=== PATIENT | male | born 1970 | race Caucasian/White ===

== ENCOUNTER 2020-08-18 06:45 | Emergency (ER) | payer MEDICARE, SELFPAY ==
[2020-08-18 06:50] VITALS: BP 195/105; PULSE 104; RESP 24; TEMP 37; O2SAT 96; BMI 25.1
--- NOTE | 2020-08-18 06:56 | ED_ITS ---
HPI - General Adult General: Chief complaint: General Medical Stated complaint: wiggling Time Seen by Provider: 08/18/20 06:51 History of Present Illness: HPI narrative: 49-year-old male presents emergency room with acute neurosis induced by methamphetamine and marijuana use. Patient told EMS that he got a hold of some bad drugs. Patient admits heused IV methamphetamine this morning. He is under the influence of methamphetamine in the emergency room. He refuses any lab work even refuses any medications. States he does not want to . Was able with some coercion to get him to allow me to examine him. Patient denies any suicidal or homicidal ideation. Patient is extremely anxious and scared that because he took the drugs they may kill him. He does not wish to . He repeats over and over he wants to live. Onset (ago): minute(s) Associated symptoms: Reports confusion; Deny chest pain, cough, diaphoresis, decreased appetite, dyspnea, fevers/chills, headache(s), malaise, nausea, rash, palpitations, seizures, short of breath, syncope, vomiting or weakness Treatments prior to arrival: none Review of Systems Const: Denies: malaise or diaphoresis ENMT: Denies: throat pain, ear or mastoid pain, nasal discharge or nasal congestion Card: Denies: chest pain, palpitations or syncope Resp: Denies: dyspnea GI: Denies: nausea or vomiting : Denies: flank pain, dysuria, urinary frequency or urinary urgency Skin/Breast: Denies: rash Neuro: Reports: confusion; Denies: headache(s) Physical Exam HENMT: COMMON NORMALS: normocephalic and atraumatic HEAD & SCALP: normocephalic and atraumatic Eye: OTHER: Pupils constricted react sluggishly. Attempted to test for nystagmus but was difficult to get him to hold lateral gaze or inferior superior gaze could not check well for it. Neck/C-Spine: COMMON NORMALS: full ROM, no lymphadenopathy, supple and no JVD Resp: COMMON NORMALS: normal respiratory effort, No retractions, No use of accessory muscles and clear to auscultation bilaterally AUSCULTATION: clear to auscultation bilaterally Cardio: COMMON NORMALS: no JVD, regular rhythm and No murmurs present (Cardio) RATE: tachycardic RHYTHM: regular rhythm GI: COMMON NORMALS: Soft to palpation and No hepatosplenomegaly present AUSCULTATION: Yes normoactive bowel sounds PALPATION: Yes Soft to palpation, No Tenderness to palpation present (GI), No Guarding due to palpation present (GI) and Yes No hepatosplenomegaly present Extremity: COMMON NORMALS: normal to inspection, capillary refill normal, no clubbing, cyanosis or edema, no calf tenderness and no pedal edema Psych: MOOD & AFFECT: Yes anxious Skin: COMMON NORMALS: no rashes or lesions noted GENERAL SKIN EXAM: no rashes or lesions noted Course Vital Signs: Vital signs: Vital Signs Temperature 98.6 F 08/18/20 06:50 Pulse Rate 112 H 08/18/20 08:19 Respiratory Rate 22 H 08/18/20 08:19 Blood Pressure 182/96 08/18/20 07:36 Pulse Oximetry 98 08/18/20 08:19 MDM - General Adult MDM Narrative: Medical decision making narrative: Several attempts over time were made to get the patient to allow us to do lab work. He continues to refuse. He was observed for a period of time and began to improve. He is aware of time place and person he admits to doing methamphetamines. He knows where hi s vehicle is and wishes to go. He is still under the influence however there is no grounds to place him on a 96-hour hold at this time. He continues to deny any suicidal or homicidal ideation. Patient verbalizes his understanding of the drug use tied to the feelings of anxiety that he had when he arrived. The majority of this has resolved. Discharge Plan Discharge Patient Disposition: Home Clinical Impression: Drug-induced psychotic disorder, Methamphetamine abuse Condition: Stable Prescriptions: No Action citalopram 40 mg Tablet 40 mg PO DAILY RF: 0 atorvastatin 20 mg Tablet 20 mg PO DAILY RF: 0 metformin 500 mg Tablet 500 mg PO BID RF: 0 testosterone cypionate 200 mg/mL Kit 200 mg IM Q30D RF: 0 Discharge Orders: Discharge ED (Routine); Ordered 08/18/20 Ordered By: Jean Pierre Rose Referrals: Srinath White MD [Primary Care Provider] - Patient Instructions: Opioid Safety Activity Restrictions/Additional Instructions: Stop using methamphetamines. Coding Level of Care Code ED Heavy Equipment Supervisor for Noah Fwd Exam Comprehensive
--- NOTE | 2020-08-18 07:05 | ECG_ITS ---
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1970 Requested By: Jean Pierre Mar Order Number: [id number] Reading MD: HERMINIA RESENDEZ Measurements Intervals Brady Rate: 112 P: 77 [place]: 175 QRS: 58 QRSD: 96 T: 57 QT: 327 QTc: 448 Interpretive Statements SINUS TACHYCARDIA POSSIBLE LEFT ATRIAL ENLARGEMENT [-0.1mV P WAVE IN V1/V2] MODERATE ST DEPRESSION [0.05+ mV ST DEPRESSION] INTERPRETATION BASED ON A DEFAULT AGE OF 40 YEARS No previous ECG available for comparison Electronically Signed On 08-18-2020 20:17:16 CDT by HERMINIA RESENDEZ [id number]
--- NOTE | 2020-08-18 07:30 | PC.NURSE ---
RN went into patients room to start an IV with blood draw. Patient immediately became frantic, moving away from nurse. RN explained what blood was for and patient refused multiple times. Provider notified.
[2020-08-18 07:36] VITALS: BP 182/96; PULSE 118; RESP 18; O2SAT 97
--- NOTE | 2020-08-18 07:38 | PC.NURSE ---
Patient sitting on the end of the bed, yelling for help because the monitor says he and has straight lines on it . RN reapplied pulse ox. Patient continues to look around room at different things.
[2020-08-18 08:19] VITALS: PULSE 112; RESP 22; O2SAT 98
== END 2020-08-18 09:41 | disposition home or self-care (01) ==
PROVIDERS: Emergency Provider Family Medicine; PCP Internal Medicine
DX: F15.159 Other stimulant abuse with stimulant-induced psychotic disorder, unspecified (principal)
CPT/HCPCS: 93005; 99282

== ENCOUNTER 2020-08-18 22:21 | Inpatient (IN) | payer MEDICARE, SELFPAY ==
[2020-08-18 22:28] VITALS: BP 158/89; PULSE 99; RESP 18; TEMP 36.6; O2SAT 98; BMI 25.1
--- NOTE | 2020-08-18 22:48 | ED_ITS ---
HPI - Psych General: Chief Complaint: Psychiatric Symptoms Stated Complaint: SAID NEEDS HELP OR HE'S GONNA KILL HIMSELF Time Seen by Provider: 08/18/20 22:45 Source: patient Mode of arrival: ambulatory Limitations: no limitations History of Present Illness: HPI Narrative: 49-year-old male who was seen here earlier this morning for methamphetamine abuse. Patient states that he has had increasing depression especially throughout the day with his drug abuse. He states he has been feeling hopeless and started having suicidal thoughts this evening. 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 Patient voluntarily wanting to be admitted to the [facility] this evening. He denies any attempts recently. He has been admitted to the psych facility years ago. He denies any worsening improving factors. Associated symptoms: Reports depression and suicidal ideation Review of Systems Const: Denies: fever(s), chills, body aches or change in appetite Eyes: Denies: blurry vision or eye discomfort ENMT: Denies: throat pain or dental pain Card: Denies: chest pain Resp: Denies: dyspnea GI: Denies: abdominal pain, nausea, vomiting or diarrhea : Denies: dysuria Musc: Denies: neck pain or back pain Skin/Breast: Denies: rash Neuro: Denies: headache(s) Psych: Reports: depression and suicidal ideation Joe/Lymph: Denies: easy bruising All/Imm: Denies: urticaria Physical Exam Const: COMMON NORMALS: no acute distress, patient oriented x3 and healthy appearing HENMT: COMMON NORMALS: normocephalic and atraumatic HEAD & SCALP: normocephalic and atraumatic Eye: COMMON NORMALS: Equal, round and reactive pupils present and EOMs intact bilaterally PUPIL: Yes Equal, round and reactive pupils present Neck/C-Spine: COMMON NORMALS: full ROM and supple Chest: COMMONS NORMALS: normal inspection of the chest and normal palpation of entire chest wall Resp: COMMON NORMALS: normal respiratory effort, No retractions, No use of accessory muscles and clear to auscultation bilaterally AUSCULTATION: clear to auscultation bilaterally Cardio: COMMON NORMALS: regular rate, regular rhythm and No murmurs present (Cardio) RATE: regular rate RHYTHM: regular rhythm GI: COMMON NORMALS: Normal to inspection, nondistended, normoactive bowel sounds present, Soft to palpation, non-tender and no masses PALPATION: Yes Soft to palpation Extremity: COMMON NORMALS: normal to inspection and full ROM Neuro: COMMON NORMALS: patient oriented x3, moves all extremities and no focal motor deficits Psych: COMMON NORMALS: mental status grossly normal, Normal thought process present and cooperative THOUGHT PROCESS: Normal thought process present THOUGHT CONTENT: Yes Suicidality present Skin: COMMON NORMALS: no rashes or lesions noted and no wounds GENERAL SKIN EXAM: no rashes or lesions noted MDM - Psych MDM Narrative: Medical decision making narrative: Patient presents here with suicidal ideation is voluntarily want to be admitted. Patient blood work here is normal and he is medically cleared. He has been using methamphetamine as well. I spoke to the psychiatrist and will admit at this time. Lab Data: Labs: Lab Results 08/18/20 08/18/20 08/18/20 Range/Units 22:56 22:56 22:59 WBC 8.2 (4.0-10.0) 10^3/ uL RBC 5.17 (4.1-5.3) 10^6/u L Hgb 15.4 (11.7-16.6) g/dL Hct 44.4 (42.0-52.0) % MCV 85.9 (80-94) fL MCH 29.8 (28.0-34.0) pg MCHC 34.7 (30.0-36.0) g/dL RDW 12.4 (12.1-15.1) % Plt Count 246 (130-400) 10^3/c mm MPV 9.8 (7.4-10.4) fL Neut % (Auto) 65.1 % Lymph % (Auto) 22.3 % [place] % (Auto) 11.1 % Eos % (Auto) 1.2 % Baso % (Auto) 0.2 % Neut # (Auto) 5.33 (1.8-7.7) 10^3/u L Lymph # (Auto) 1.8 (0.8-4.8) 10^3/u L [place] # (Auto) 0.9 (0.2-0.9) 10^3/u L Eos # (Auto) 0.1 (0.0-0.8) 10^3/u L Baso # (Auto) 0.0 (0.0-0.1) 10^3/u L Nucleated RBC % (a uto) 0 % Nucleated RBCs # 0.0 /100WBC Sodium 137 (136-145) mmol/L Potassium 3.2 L (3.5-5.1) mmol/L Chloride 100 (98-107) mmol/L Carbon Dioxide 25 (22-29) mmol/L Anion Gap 15.2 (5-19) BUN 11 (6-20) mg/dL Creatinine 0.8 (0.7-1.2) mg/dL GFR Calculation 102.3 (90-130) mL/min Glucose 214 H (65-115) mg/dL Calculated Osmolal ity 290 (285-295) mOsm/k g Calcium 9.3 (8.5-10.5) mg/dL Total Bilirubin 0.9 (0.15-1.2) mg/dL AST 16 (0-40) U/L ALT 18 (0-41) U/L Alkaline Phosphata se 85 (40-130) IU/L Total Protein 7.3 (6.6-8.7) g/dL Albumin 4.5 (3.5-5.2) g/dL Globulin 2.8 (1.3-4.6) g/dL Salicylates < 0.3 L (3-10) mg/dL Urine Opiates Scre en Negative (Negative) ng/mL Acetaminophen < 5.0 L (10-30) ug/mL Ur Barbiturates Sc reen Negative (Negative) ng/mL Ur Phencyclidine S crn Negative (Negative) ng/mL Ur Amphetamines Sc reen Positive H (Negative) ng/mL U Benzodiazepines Scrn Negative (Negative) ng/mL Urine Cocaine Scre en Negative (Negative) ng/mL U Marijuana (THC) Screen Positive H (Negative) ng/mL Ethyl Alcohol < 10 (0-10) mg/dL Discharge Plan Discharge Patient Disposition: Admitted As Inpatient Clinical Impression: Methamphetamine abuse, Suicidal ideation Condition: Stable Coding Level of Care Code ED Tool Storage Attendant for Noah Fwbrittany Exam Comprehensive
[2020-08-18 23:03] LABS: Basophils % 0.2 %; Eosinophils # 0.1 10^3/uL (0.0-0.8); Eosinophils % 1.2 %; Hematocrit 44.4 % (42.0-52.0); Hemoglobin 15.4 g/dL (11.7-16.6); Lymphocytes # 1.8 10^3/uL (0.8-4.8); Lymphocytes % 22.3 %; Mean Corpuscular HGB Conc 34.7 g/dL (30.0-36.0); Mean Corpuscular Hemoglobin 29.8 pg (28.0-34.0); Mean Corpuscular Volume 85.9 fL (80-94); Mean Platelet Volume 9.8 fL (7.4-10.4); Monocytes # 0.9 10^3/uL (0.2-0.9); Monocytes % 11.1 %; Neutrophils # 5.33 10^3/uL (1.8-7.7); Neutrophils % 65.1 %; Nucleated Red Blood Cells % 0 %; Platelet Count 246 10^3/cmm (130-400); Red Blood Count 5.17 10^6/uL (4.1-5.3); Red Cell Distribution Width 12.4 % (12.1-15.1); White Blood Count 8.2 10^3/uL (4.0-10.0)
[2020-08-18 23:15] LABS: Amphetamines Screen Urine Positive (Negative); Barbiturates Screen Urine Negative (Negative); Benzodiazepines Screen Urine Negative (Negative); Cocaine Screen Urine Negative (Negative); Opiate Screen Urine Negative (Negative); PCP Screen Urine Negative (Negative); THC Screen Urine Positive (Negative)
[2020-08-18 23:18] LABS: Alanine Aminotransferase 18 U/L (0-41); Albumin Level 4.5 g/dL (3.5-5.2); Alkaline Phosphatase 85 IU/L (40-130); Anion Gap 15.2 (5-19); Aspartate Amino Transferase 16 U/L (0-40); Blood Urea Nitrogen 11 mg/dL (6-20); Calcium 9.3 mg/dL (8.5-10.5); Carbon Dioxide 25 mmol/L (22-29); Chloride 100 mmol/L (98-107); Globulin 2.8 g/dL (1.3-4.6); Glomerular Filtration Rate 102.3 mL/min (90-130); Glucose 214 mg/dL (65-115); Osmolality Calculated 290 mOsm/kg (285-295); Potassium 3.2 mmol/L (3.5-5.1); Sodium 137 mmol/L (136-145); Total Bilirubin 0.9 mg/dL (0.15-1.2); Total Protein 7.3 g/dL (6.6-8.7)
[2020-08-18 23:19] LABS: Acetaminophen < 5.0 ug/mL (10-30); Alcohol Level < 10 mg/dL (0-10); Salicylate < 0.3 mg/dL (3-10)
[2020-08-18 23:20] VITALS: BP 156/87; PULSE 78; RESP 16; O2SAT 100
[2020-08-19 00:05] VITALS: BP 154/78; PULSE 78; RESP 16; O2SAT 100
[2020-08-19 00:47] VITALS: BP 180/139; PULSE 105; RESP 20; TEMP 36.9; O2SAT 92
[2020-08-19] MEDS: trazodone 50 mg Tablet PO ×2 (00:56→20:59)
[2020-08-19] MEDS: acetaminophen 325 mg Tablet 650 MG PO ×2 (00:56→22:36)
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
[2020-08-19 06:00] VITALS: BP 115/69; PULSE 90; RESP 14; TEMP 37; O2SAT 100
[2020-08-19 06:42] LABS: Glucose Point of Care 150 mg/dL (70-110)
[2020-08-19] MEDS: citalopram 20 mg Tablet 40 MG PO (09:05)
[2020-08-19] MEDS: atorvastatin 40 mg Tablet 20 MG PO (09:05)
[2020-08-19] MEDS: metformin 500 mg Tablet PO ×2 (09:05→17:57)
[2020-08-19] MEDS: OLANZapine 5 mg ODT PO (11:08)
--- NOTE | 2020-08-19 11:09 | PC.NURSE ---
PRN ZYPREXA ZYDIS 5 MG GIVEN PO PER PT C/O PARANOIA/ANXIETY. PT PACING UNIT, HAS BOTH HANDS ON HIS HEAD, RAPID PRESSURED SPEECH NOTED. STAFF ASKED PT IF HE WAS FEELING ANXIOUS, PT LAUGHED AND SAID WHY YES! PT ASKED IF HE KNEW THAT HE WAS AT THE HOSPITAL IN [place], PT REPLIED YES PT TOOK MED WITH MUCH STAFF ENCOURAGEMENT. WILL CONT TO MONITOR FOR DESIRED MED EFFECTIVENESS.
[2020-08-19 11:47] LABS: Glucose Point of Care 211 mg/dL (70-110)
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
[2020-08-19 14:00] VITALS: BP 162/84; PULSE 94; RESP 20; TEMP 36.8; O2SAT 98
[2020-08-19 17:53] LABS: Glucose Point of Care 170 mg/dL (70-110)
[2020-08-19 21:17] LABS: Glucose Point of Care 139 mg/dL (70-110)
[2020-08-19 22:00] VITALS: BP 99/65; PULSE 82; TEMP 36.6; O2SAT 98
--- NOTE | 2020-08-20 03:31 | PC.NURSE ---
pm assessment pt is less paranoid this evening, he reports AH-voices, denies SI/HI, DENIES VH, V/S ARE WNL, HEART AND LUNGS ARE WNL, PT IS CALM IN THE DAY ROOM WATCHING TELEVISION,
[2020-08-20 05:29] VITALS: BP 113/78; PULSE 85; TEMP 36.2; O2SAT 97
[2020-08-20 06:54] LABS: Glucose Point of Care 144 mg/dL (70-110)
[2020-08-20] MEDS: citalopram 20 mg Tablet 40 MG PO (09:24)
[2020-08-20] MEDS: metformin 500 mg Tablet PO ×2 (09:24→18:11)
[2020-08-20] MEDS: atorvastatin 40 mg Tablet 20 MG PO (09:24)
[2020-08-20 11:29] LABS: Glucose Point of Care 143 mg/dL (70-110)
[2020-08-20 13:05] VITALS: BP 144/85; PULSE 76; RESP 18; TEMP 36.5; O2SAT 99
[2020-08-20 16:44] LABS: Glucose Point of Care 107 mg/dL (70-110)
--- NOTE | 2020-08-20 17:40 | P.PN_ITS ---
Subjective NPU Subjective: Interval history: Sb presents today with limited engagement as he had during the day. We agreed that is likely represented withdrawal phenomena and that we would continue to work with him on plans for sober living treatment. We continue to discuss the possibility of introducing an antipsychotic which he was fairly ambivalent and not really engaged in the conversation about the issue. He is eating okay and sleeping a lot. Mental Status Exam MSE Comments: This is a well-nourished, well-developed white male with tattoos all over his exposed skin with adequate grooming and limited eye contact. No abnormal movements except for psychomotor retardation. Semicooperative with exam and mild distress. Speech was normal rate and volume. Mood described as tired, affect congruent. Thought process mostly organized, thought content: Denied suicidal or homicidal ideation, he endorsed paranoia and delusional thinking was noted, he endorses auditory and visual hallucinations. Attention and concentration were impaired and memory was impaired but none were formally tested. He is alert and oriented x3. Insight and judgment are impaired and impulse control is limited. Vitals/I&O/Wt Last Vital Signs Temp 99.0 F 08/20/20 21:26 Pulse 77 08/20/20 21:26 Resp 16 08/20/20 21:26 BP 161/71 08/20/20 21:26 Pulse Ox 95 08/20/20 21:26 Data NPU : 08/18/20 22:56 08/18/20 22:56 A&P Additional A&P Information (1) Drug-induced psychotic disorder: (2) Methamphetamine abuse: (3) Suicidal ideation: (4) Depression: Additional A&P Information This is a 49-year-old white male with a long history of addiction depression and past history of drug-induced psychosis who presents with active addiction and thought disorder but unsure about taking medication at this time. 1. Continue current medication. We will attempt to get him to start Abilify 10 mg p.o. every morning to assist with the thought disorder. 2. Continue every 15 minute checks for safety. 3. Encourage individual, group and milieu therapies. 4. Encourage sober living treatment after discharge at the highest level of care to which he is willing to commit. Involuntary Hold Information 96 Hour Hold: 96 Hour Involuntary Admission: No Attestations NPU Medical Necessity Statement*: Inpatient hospitalization is medically necessary and the clinically appropriate intervention at this time. We will monitor medications and make changes as indicated. Likely length of stay 2-4 days. Coding Level of Care Code Acute Network Operations Center Engineer for Noah Douglas
[2020-08-20 20:37] LABS: Glucose Point of Care 127 mg/dL (70-110)
[2020-08-20 21:26] VITALS: BP 161/71; PULSE 77; RESP 16; TEMP 37.2; O2SAT 95
[2020-08-21 06:00] VITALS: BP 139/70; PULSE 80; RESP 16; TEMP 36.6; O2SAT 97
[2020-08-21 06:38] LABS: Glucose Point of Care 103 mg/dL (70-110)
[2020-08-21] MEDS: atorvastatin 40 mg Tablet 20 MG PO (08:14)
[2020-08-21] MEDS: citalopram 20 mg Tablet 40 MG PO (08:15)
[2020-08-21] MEDS: metformin 500 mg Tablet PO ×2 (08:16→17:17)
--- NOTE | 2020-08-21 09:47 | PC.SOCIAL ---
IMM not completed due to pt not discharging within next few days.
[2020-08-21 11:05] LABS: Glucose Point of Care 128 mg/dL (70-110)
[2020-08-21] MEDS: ARIPiprazole 10 mg Tablet PO (13:56)
[2020-08-21 14:00] VITALS: BP 132/76; PULSE 75; RESP 16; TEMP 37.7; O2SAT 95
--- NOTE | 2020-08-21 16:02 | PM.NPN ---
Subjective NPU Subjective: Interval history: Montez presents today seemingly continuing to have confusion and inability to make decisions. He continues to be overwhelmed with the simplest questions. Once again we asked if he would be open to a trial of an antipsychotic to maybe help with his thought disorder discussing the risks, benefits and alternatives and he understood agreed he has done his own. We discussed the fact that we are hopeful that with this is thinking would clear more quickly. Mental Status Exam MSE Comments: This is a well-nourished, well-developed white male with tattoos all over his exposed skin with adequate grooming and limited eye contact. No abnormal movements except for psychomotor retardation. Semicooperative with exam in mild to moderate distress. Speech was normal rate and volume. Mood described as I do not know, affect irritable and confused. Thought process mostly disorganized, thought content: Denied suicidal or homicidal ideation, he endorsed paranoia and paranoid/delusional thinking was noted, he endorses auditory and visual hallucinations. Attention and concentration were impaired and memory was impaired but none were formally tested. He is alert and oriented x3. Insight and judgment are impaired and impulse control is limited. Vitals/I&O/Wt Last Vital Signs Temp 99.9 F H 08/21/20 14:00 Pulse 75 08/21/20 14:00 Resp 16 08/21/20 14:00 BP 132/76 08/21/20 14:00 Pulse Ox 95 08/21/20 14:00 Data NPU : 08/18/20 22:56 08/18/20 22:56 A&P Additional A&P Information (1) Drug-induced psychotic disorder: (2) Methamphetamine abuse: (3) Suicidal ideation: (4) Depression: Additional A&P Information This is a 49-year-old white male with a long history of addiction depression and past history of drug-induced psychosis who presents with active addiction and thought disorder but unsure about taking medication at this time. 1. Continue current medication. Start Abilify 10 mg p.o. every morning and monitor for improvement. 2. Continue every 15 minute checks for safety. 3. Encourage individual, group and milieu therapies. 4. Encourage sober living treatment after discharge at the highest level of care to which he is willing to commit. Involuntary Hold Information 96 Hour Hold: 96 Hour Involuntary Admission: No Attestations NPU Medical Necessity Statement*: Inpatient hospitalization is medically necessary and the clinically appropriate intervention at this time. We will monitor medications and make changes as indicated. Likely length of stay 2-4 days. Coding Level of Care Code Acute Lapel Baster for Noah Douglas
[2020-08-21 16:33] LABS: Glucose Point of Care 108 mg/dL (70-110)
[2020-08-21 19:27] LABS: Glucose Point of Care 143 mg/dL (70-110)
[2020-08-21 22:00] VITALS: BP 131/71; PULSE 76; RESP 17; TEMP 37.4; O2SAT 93
[2020-08-22 06:00] VITALS: BP 166/81; PULSE 88; RESP 15; TEMP 37.1; O2SAT 96
--- NOTE | 2020-08-22 07:09 | PM.NPN ---
Subjective NPU Subjective: Interval history: Montez presents today reporting that he is feeling not much better. He seemed less on edge but otherwise was still isolative and staying in bed. He is showering and taking care of his ADLs and eating fine. He is getting significant sleep but still reporting significant confusion and inability to make decisions. He has expressed no clear interest and specific treatment modality after discharge. Mental Status Exam MSE Comments: This is a well-nourished, well-developed white male with tattoos all over his exposed skin with adequate grooming and limited eye contact. No abnormal movements except for psychomotor retardation. Semicooperative with exam in mild to moderate distress. Speech was normal rate and volume. Mood described as tired, affect irritable and confused. Thought process still disorganized, thought content: Denied suicidal or homicidal ideation, he endorsed paranoia and paranoid/delusional thinking was noted, he endorses auditory and visual hallucinations. Attention and concentration were impaired and memory was impaired but none were formally tested. He is alert and oriented x3. Insight and judgment are impaired and impulse control is limited. Vitals/I&O/Wt Last Vital Signs Temp 98.7 F 08/22/20 06:00 Pulse 88 08/22/20 06:00 Resp 15 08/22/20 06:00 BP 166/81 08/22/20 06:00 Pulse Ox 96 08/22/20 06:00 Data NPU : 08/18/20 22:56 08/18/20 22:56 A&P Additional A&P Information (1) Drug-induced psychotic disorder: (2) Methamphetamine abuse: (3) Suicidal ideation: (4) Depression: Additional A&P Information This is a 49-year-old white male with a long history of addiction depression and past history of drug-induced psychosis who presents with active addiction and thought disorder but unsure about taking medication at this time. 1. Continue current medication. 2. Continue every 15 minute checks for safety. 3. Encourage individual, group and milieu therapies. 4. Encourage sober living treatment after discharge at the highest level of care to which he is willing to commit. Involuntary Hold Information 96 Hour Hold: 96 Hour Involuntary Admission: No Attestations NPU Medical Necessity Statement*: Inpatient hospitalization is medically necessary and the clinically appropriate intervention at this time. We will monitor medications and make changes as indicated. Likely length of stay 2-4 days. Coding Level of Care Code Acute Drive Shaft And Steering Post Repairer for Rojeliog Misael
[2020-08-22 07:20] LABS: Glucose Point of Care 130 mg/dL (70-110)
[2020-08-22] MEDS: citalopram 20 mg Tablet 40 MG PO (08:05)
[2020-08-22] MEDS: metformin 500 mg Tablet PO ×2 (08:05→16:38)
[2020-08-22] MEDS: ARIPiprazole 10 mg Tablet PO (08:05)
[2020-08-22] MEDS: atorvastatin 40 mg Tablet 20 MG PO (08:05)
[2020-08-22 10:53] LABS: Glucose Point of Care 103 mg/dL (70-110)
[2020-08-22 13:20] VITALS: BP 148/81; PULSE 88; RESP 17; TEMP 37.1
[2020-08-22 16:47] LABS: Glucose Point of Care 106 mg/dL (70-110)
[2020-08-22 19:41] LABS: Glucose Point of Care 127 mg/dL (70-110)
[2020-08-22 22:00] VITALS: BP 156/85; PULSE 87; RESP 16; TEMP 36.9; O2SAT 94
[2020-08-22 22:41] VITALS: BP 156/85; PULSE 87; RESP 16; TEMP 36.9; O2SAT 94
--- NOTE | 2020-08-22 22:47 | PC.NURSE ---
pm assessment pt is sleeping, Denies pain, denies SI/HI, Denies AH/VH, v/s are normal with the exception of B/P of 156/85 at rest, and glucose is 127. Will continue to observe
[2020-08-23 06:00] VITALS: BP 159/83; PULSE 86; RESP 16; TEMP 37.3; O2SAT 96; BMI 25.1
[2020-08-23 06:35] LABS: Glucose Point of Care 116 mg/dL (70-110)
[2020-08-23] MEDS: atorvastatin 40 mg Tablet 20 MG PO (08:19)
[2020-08-23] MEDS: ARIPiprazole 10 mg Tablet PO (08:19)
[2020-08-23] MEDS: citalopram 20 mg Tablet 40 MG PO (08:19)
[2020-08-23] MEDS: metformin 500 mg Tablet PO ×2 (08:22→17:39)
[2020-08-23 11:40] LABS: Glucose Point of Care 93 mg/dL (70-110)
[2020-08-23 14:00] VITALS: BP 145/83; PULSE 82; RESP 18; TEMP 36.7; O2SAT 96
--- NOTE | 2020-08-23 15:12 | PM.NPN ---
Subjective NPU Subjective: Interval history: Montez presents today still being isolative and sleeping a lot likely reflecting withdrawal. But today is one of the first signs that his thought disorder is resolving. We had a first conversation wherein I essentially ask questions that he gave answers that approximated the subject and the essence of the question without needing me to repeat the question. He reports that he is eating fine and sleeping well, getting caught up on his sleep and starting to feel better. He finally feeling the medication is being helpful and that his thoughts are starting to be more organized. Mental Status Exam MSE Comments: This is a well-nourished, well-developed white male with tattoos all over his exposed skin with adequate grooming and improving eye contact. No abnormal movements except for psychomotor retardation, with some improvement. More cooperative with exam in no acute distress. Speech was normal rate and volume. Mood described as maybe a little better, affect less irritable. Thought process still more organized, thought content: Patient denied suicidal or homicidal ideation, he denied delusions and no delusional issues were noted, he did not report any auditory or visual hallucinations. Attention and concentration were improving and memory was limited but none were formally tested. He is alert and oriented x3. Insight and judgment are limited, but improving and impulse control is limited. Vitals/I&O/Wt Last Vital Signs Temp 98.1 F 08/23/20 14:00 Pulse 82 08/23/20 14:00 Resp 18 08/23/20 14:00 BP 145/83 08/23/20 14:00 Pulse Ox 96 08/23/20 14:00 Weight last 48 hrs Weight 81.647 kg Data NPU : 08/18/20 22:56 08/18/20 22:56 A&P Additional A&P Information (1) Drug-induced psychotic disorder: (2) Methamphetamine abuse: (3) Suicidal ideation: (4) Depression: Additional A&P Information This is a 49-year-old white male with a long history of addiction depression and past history of drug-induced psychosis who presents with active addiction and thought disorder but unsure about taking medication at this time. 1. Continue current medication. 2. Continue every 15 minute checks for safety. 3. Encourage individual, group and milieu therapies. 4. Encourage sober living treatment after discharge at the highest level of care to which he is willing to commit. Involuntary Hold Information 96 Hour Hold: 96 Hour Involuntary Admission: No Attestations NPU Medical Necessity Statement*: Inpatient hospitalization is medically necessary and the clinically appropriate intervention at this time. We will monitor medications and make changes as indicated. Likely length of stay 1-3 days. Coding Level of Care Code Acute Custodian Supervisor for Noah Douglas
[2020-08-23 17:04] LABS: Glucose Point of Care 122 mg/dL (70-110)
[2020-08-23 20:30] LABS: Glucose Point of Care 137 mg/dL (70-110)
[2020-08-23 21:29] VITALS: BP 158/85; PULSE 81; RESP 17; TEMP 36.3; O2SAT 96
--- NOTE | 2020-08-24 01:44 | PC.NURSE ---
pm assessment Pt in his room, he is tearful/embarrassed,and he is communicating clearly tonight. Pt states, I have done a lot of drugs in the past, it has never made me paranoid to this extent, it must have been bad shit, Pt went on to say that he has not been a good parent, asked to use the phone, called his children, and told nurse that he wants to quit using. He wants a different life. Denies pain, denies SI/HI, Denies AH/VH, v/s are normal with the exception of B/P of 158/85 at rest, and glucose is 137. no paranoid/bizaar behavior noted. Will continue to observe
[2020-08-24 06:00] VITALS: BP 155/80; PULSE 85; RESP 16; TEMP 36.9; O2SAT 97
[2020-08-24 06:32] LABS: Glucose Point of Care 139 mg/dL (70-110)
[2020-08-24] MEDS: metformin 500 mg Tablet PO ×2 (08:03→16:30)
[2020-08-24] MEDS: citalopram 20 mg Tablet 40 MG PO (08:03)
[2020-08-24] MEDS: atorvastatin 40 mg Tablet 20 MG PO (08:03)
[2020-08-24] MEDS: ARIPiprazole 10 mg Tablet PO (08:03)
[2020-08-24 11:07] LABS: Glucose Point of Care 115 mg/dL (70-110)
[2020-08-24 14:00] VITALS: BP 145/76; PULSE 82; RESP 17; TEMP 36.8; O2SAT 95
[2020-08-24 16:36] LABS: Glucose Point of Care 116 mg/dL (70-110)
--- NOTE | 2020-08-24 18:34 | PM.NPN ---
Subjective NPU Subjective: Interval history: Montez presented today reporting that he is interested in getting to rehab. We discussed that the treatment team is seeking out options but that those may be limited in this Covid era. We agreed that we would look to see what was available and what response of the treatment team got to referrals tomorrow and possibly consider discharge if we do not have a clear identifiable facility. He reports he is eating a little better and sleeping a lot. Mental Status Exam MSE Comments: This is a well-nourished, well-developed white male with tattoos all over his exposed skin with adequate grooming and improving eye contact. No abnormal movements except for psychomotor retardation, with some improvement. More cooperative with exam in no acute distress. Speech was normal rate and volume. Mood described as doing better, affect congruent. Thought process more organized, thought content: Patient denied suicidal or homicidal ideation, he denied delusions and no delusional issues were noted, he did not report any auditory or visual hallucinations. Attention and concentration were improving and memory was improving, but none were formally tested. He is alert and oriented x3. Insight and judgment are limited, but improving and impulse control is limited. Vitals/I&O/Wt Last Vital Signs Temp 98.6 F 08/24/20 19:25 Pulse 87 08/24/20 19:25 Resp 15 08/24/20 19:25 BP 154/89 08/24/20 19:25 Pulse Ox 94 08/24/20 19:25 Weight last 48 hrs Weight 81.647 kg Data NPU : 08/18/20 22:56 08/18/20 22:56 A&P Additional A&P Information (1) Drug-induced psychotic disorder: (2) Methamphetamine abuse: (3) Suicidal ideation: (4) Depression: Additional A&P Information This is a 49-year-old white male with a long history of addiction depression and past history of drug-induced psychosis who presents with active addiction and thought disorder but unsure about taking medication at this time. 1. Continue current medication. 2. Continue every 15 minute checks for safety. 3. Encourage individual, group and milieu therapies. 4. Encourage sober living treatment after discharge at the highest level of care to which he is willing to commit. Involuntary Hold Information 96 Hour Hold: 96 Hour Involuntary Admission: No Attestations NPU Medical Necessity Statement*: Inpatient hospitalization is medically necessary and the clinically appropriate intervention at this time. We will monitor medications and make changes as indicated. Likely length of stay 1-2 days. Possible discharge in the morning. Coding Level of Care Code Acute Candy Supervisor for Noah Douglas
[2020-08-24 19:25] VITALS: BP 154/89; PULSE 87; RESP 15; TEMP 37; O2SAT 94
[2020-08-24 19:26] LABS: Glucose Point of Care 129 mg/dL (70-110)
[2020-08-25 06:00] VITALS: BP 126/78; PULSE 74; RESP 16; TEMP 37.1; O2SAT 95
[2020-08-25 06:32] LABS: Glucose Point of Care 118 mg/dL (70-110)
[2020-08-25] MEDS: atorvastatin 40 mg Tablet 20 MG PO (08:27)
[2020-08-25] MEDS: metformin 500 mg Tablet PO ×2 (08:27→16:33)
[2020-08-25] MEDS: citalopram 20 mg Tablet 40 MG PO (08:27)
[2020-08-25] MEDS: ARIPiprazole 10 mg Tablet PO (08:27)
[2020-08-25 11:07] LABS: Glucose Point of Care 112 mg/dL (70-110)
[2020-08-25 14:00] VITALS: RESP 18
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
[2020-08-25 16:36] VITALS: RESP 18
== END 2020-08-25 16:42 | disposition home or self-care (01) | DRG 897 ==
LOC: ER 23:20 → NP 23:56
PROVIDERS: Admitting Provider Psychiatry & Neurology Psychiatry; Emergency Provider Emergency Medicine; PCP Internal Medicine; Visit Provider Psychiatry & Neurology Psychiatry
DX: F15.159 Other stimulant abuse with stimulant-induced psychotic disorder, unspecified (principal); R45.851 Suicidal ideations; F15.10 Other stimulant abuse, uncomplicated; F32.9 Major depressive disorder, single episode, unspecified; Z81.8 Family history of other mental and behavioral disorders
CPT/HCPCS: 36416; 80053; 80306; 80307; 82962; 85025; 93005; 96372; 99282; 99285; J1815